=== PATIENT | male | born 1970 | race Two or more races ===

== ENCOUNTER 2017-05-07 08:44 | Emergency (ER) | payer SELFPAY ==
[2017-05-07] MEDS: IBUPROFEN 800 MG TABLET. PO (09:07)
== END 2017-05-07 09:54 | disposition home or self-care (01) ==
LOC: ER 08:44
DX: S93.401A Sprain of unspecified ligament of right ankle, initial encounter (principal); W00.0XXA Fall on same level due to ice and snow, initial encounter; Y93.89 Activity, other specified; Y92.89 Other specified places as the place of occurrence of the external cause; Y99.8 Other external cause status
CPT/HCPCS: 29515; 73610; 99284